=== PATIENT | male | born 1975 | race African-American/Black ===

== ENCOUNTER 2017-01-11 14:07 | Emergency (ER) | payer MEDICAID ==
[~2017-01-11] VITALS: Ht 190.5 cm; Wt 122.5 kg
[2017-01-11 14:33] VITALS: BP 137/103
--- NOTE | 2017-01-11 19:21 | NUR ---
PATIENT LEFT WITHOUT BEING SEEN BY DR. CISNEROS. NO FURTHER CARE PROVIDED FOR PATIENT.
== END 2017-01-11 19:21 | disposition left against medical advice (07) ==
LOC: MED 14:07
DX: R42 Dizziness and giddiness (principal); Z53.21 Procedure and treatment not carried out due to patient leaving prior to being seen by health care provider

== ENCOUNTER 2023-06-11 18:23 | Emergency (ER) | payer BC, MEDICAID ==
[~2023-06-11] VITALS: Ht 188 cm; Wt 116.1 kg
[2023-06-11 18:57] VITALS: BP 142/100; PULSE 114; RESP 20; TEMP 98; O2SAT 99
[2023-06-11 19:52] LABS: BASOPHILS # (AUTO) 0.1 K/uL (0.00-0.22); BASOPHILS % (AUTO) 0.8 % (0.0-2.0); EOSINOPHILS # (AUTO) 0.1 K/uL (0-0.4); EOSINOPHILS % (AUTO) 0.6 % (0.0-4.0); HEMATOCRIT 47.5 % (36-52); LYMPHOCYTES # (AUTO) 3.5 K/uL (2.0-11.5); LYMPHOCYTES % (AUTO) 38.9 % (20.5-51.1); MEAN CORPUSCULAR HEMOGLOBIN 28 pg (27-31); MEAN CORPUSCULAR HGB CONC 34 g/dL (33-37); MEAN CORPUSCULAR VOLUME 84.6 fL (80-94); MONOCYTES # (AUTO) 0.7 K/uL (0.8-1.0); MONOCYTES % (AUTO) 7.8 % (1.7-9.3); NEUTROPHILS # (AUTO) 4.7 K/uL (1.8-7.7); NEUTROPHILS % (AUTO) 51.9 % (42.2-75.2); PLATELET COUNT (AUTO) 371 K/uL (140-450); RED BLOOD CELL COUNT(AUTO) 5.62 MIL/uL (4.20-6.10)
[2023-06-11 20:17] LABS: ANION GAP 13.4 (8-16); CALCIUM 8.8 mg/dL (8.5-10.1); CARBON DIOXIDE 27.6 mmol/L (21-32); CREATININE 1.2 mg/dL (0.6-1.3)
[2023-06-11 23:40] VITALS: BP 136/79; PULSE 72; RESP 20; O2SAT 99
== END 2023-06-11 23:40 | disposition home or self-care (01) ==
LOC: MED 18:23
DX: R07.9 Chest pain, unspecified (principal); F41.9 Anxiety disorder, unspecified; I10 Essential (primary) hypertension; E78.5 Hyperlipidemia, unspecified
CPT/HCPCS: 36415; 71045; 80048; 84484; 85025; 93005; 99285; Q0092

== ENCOUNTER 2023-06-27 16:01 | Emergency (ER) | payer BC, MEDICAID ==
[~2023-06-27] VITALS: Ht 188 cm; Wt 112.9 kg
[2023-06-27 16:11] VITALS: BP 104/89; PULSE 115; RESP 20; TEMP 97; O2SAT 98
[2023-06-27] MEDS ORDERED: [UNRECOGNIZED DRUG - CODE] PO (16:33)
[2023-06-27] MEDS ORDERED: AMOX1TER12 PO (16:33)
== END 2023-06-27 16:45 | disposition home or self-care (01) ==
LOC: MED 16:01
DX: L02.219 Cutaneous abscess of trunk, unspecified (principal); I10 Essential (primary) hypertension; Z79.899 Other long term (current) drug therapy
CPT/HCPCS: 99283

== ENCOUNTER 2023-07-30 19:51 | Emergency (ER) | payer BC, MEDICAID ==
[~2023-07-30] VITALS: Ht 188 cm; Wt 108.4 kg
[~2023-07-30 19:51] MED LIST: AMOX1TER12 PO; [UNRECOGNIZED DRUG - CODE] PO
[2023-07-30 20:56] VITALS: BP 130/90; PULSE 100; RESP 18; TEMP 97.7; O2SAT 99
[2023-07-30] MEDS ORDERED: KETOROLAC 60 MG/2 ML VIAL IM ONE (22:35)
[2023-07-30 23:28] VITALS: O2SAT 99
[2023-07-30] MEDS ORDERED: NAPR-54 PO (23:43)
== END 2023-07-30 23:50 | disposition home or self-care (01) ==
LOC: MED 19:51
DX: S33.9XXA Sprain of unspecified parts of lumbar spine and pelvis, initial encounter (principal); I10 Essential (primary) hypertension; Z79.899 Other long term (current) drug therapy; Z79.1 Long term (current) use of non-steroidal anti-inflammatories (NSAID); Z79.2 Long term (current) use of antibiotics; V89.2XXA Person injured in unspecified motor-vehicle accident, traffic, initial encounter; Y93.89 Activity, other specified; Y92.410 Unspecified street and highway as the place of occurrence of the external cause; Y99.8 Other external cause status
CPT/HCPCS: 72050; 72100; 96372; 99284; J1885

== ENCOUNTER 2023-10-12 16:02 | Emergency (ER) | payer BC, MEDICAID ==
[~2023-10-12] VITALS: Ht 188 cm; Wt 105.7 kg
[~2023-10-12 16:02] MED LIST changes: +NAPR-54 PO
[2023-10-12 16:06] VITALS: BP 148/89; PULSE 144; RESP 18; TEMP 98; O2SAT 100
[2023-10-12] MEDS ORDERED: NACL 0.9% 1,000 ML IV ONE (16:35)
[2023-10-12] MEDS ORDERED: ASPIRIN 81 MG TAB.CHEW PO ONE (16:35)
[2023-10-12] MEDS ORDERED: LORazepam 2 MG/ML VIAL IVP ONE (16:35)
[2023-10-12 17:14] LABS: BASOPHILS % (AUTO) 0.4 % (0.0-2.0); EOSINOPHILS % (AUTO) 0.2 % (0.0-4.0); HEMATOCRIT 46.6 % (36-52); HEMOGLOBIN 16.3 g/dL (12.0-18.0); LYMPHOCYTES # (AUTO) 1.6 K/uL (2.0-11.5); LYMPHOCYTES % (AUTO) 21.6 % (20.5-51.1); MEAN CORPUSCULAR HEMOGLOBIN 30 pg (27-31); MEAN CORPUSCULAR HGB CONC 35 g/dL (33-37); MEAN CORPUSCULAR VOLUME 84.4 fL (80-94); MONOCYTES # (AUTO) 0.5 K/uL (0.8-1.0); MONOCYTES % (AUTO) 7.5 % (1.7-9.3); NEUTROPHILS # (AUTO) 5.1 K/uL (1.8-7.7); NEUTROPHILS % (AUTO) 70.3 % (42.2-75.2); PLATELET COUNT (AUTO) 394 K/uL (140-450); RED BLOOD CELL COUNT(AUTO) 5.52 MIL/uL (4.20-6.10); WHITE BLOOD COUNT (AUTO) 7.3 K/uL (4.8-10.8)
[2023-10-12 17:27] LABS: PARTIAL THROMBOPLASTIN TIME 24.8 secs (22-35.6); PROTHROMBIN TIME 10.5 secs (10.8-13.4)
[2023-10-12 17:56] LABS: ALANINE AMINOTRANSFERASE 20 U/L (12-78); ALBUMIN 3.9 g/dL (3.4-5.0); ALKALINE PHOSPHATASE 89 U/L (50-136); ANION GAP 16.1 (8-16); ASPARTATE AMINOTRANSFERASE 17 U/L (15-37); CALCIUM 9.4 mg/dL (8.5-10.1); CARBON DIOXIDE 25.9 mmol/L (21-32); CHLORIDE 98 mmol/L (98-107); CREATININE 1.2 mg/dL (0.6-1.3); GFR ARICAN-AMERICAN 83 mL/min (>90); GFR NON ARICAN-AMERICAN 69 mL/min (>90); GLUCOSE 115 mg/dL (74-106); SODIUM SERUM 137 mmol/L (136-145); THYROID STIMULATING HORMONE 1.59 uIU/mL (0.34-3.74); TOTAL BILIRUBIN 0.8 mg/dL (0.0-1.0); TOTAL PROTEIN, SERUM 9.5 g/dL (6.4-8.2); UREA NITROGEN, BLOOD 15 mg/dL (7-18)
[2023-10-12] MEDS ORDERED: POTASSIUM CHLORIDE 10 MEQ TABER PO ONE (18:05)
[2023-10-12] MEDS ORDERED: ACETAMINOPHEN EXTRA STRENGTH 500 MG TAB PO ONE (18:35)
[2023-10-12] MEDS ORDERED: AZIT250T4 PO (18:50)
[2023-10-12] MEDS ORDERED: HYDR25CA1 PO (18:50)
[2023-10-12] MEDS ORDERED: ACET-9882 PO (18:50)
[2023-10-12 19:31] LABS: APPEARANCE,URINE CLEAR (CLEAR); BILIRUBIN,URINE NEGATIVE (NEGATIVE); BLOOD, URINE NEGATIVE (NEGATIVE); COLOR,URINE YELLOW (YELLOW); LEUKOCYTE ESTERASE ,URINE NEGATIVE (NEGATIVE); NITRITE, URINE NEGATIVE (NEGATIVE); PROTEIN,URINE NEGATIVE (NEGATIVE); UGLUCOSE NEGATIVE (NEGATIVE); UROBILINOGEN,URINE 0.2 EU/dL (0.2 - 1)
[2023-10-12 19:39] LABS: AMPHETAMINE, URINE NEGATIVE ng/ml (NEG <=1000); BARBITURATE, URINE NEGATIVE ng/ml (NEG <=200); BENZODIAZEPINE, URINE NEGATIVE ng/mL (NEG <=200); CANNABINOID, URINE POSITIVE ng/mL (NEG <=50); COCAINE, URINE NEGATIVE ng/mL (NEG <=300); OPIATE, URINE NEGATIVE ng/mL (NEG <=2000); PHENCYCLIDINE SCREEN,URINE NEGATIVE ng/mL (NEG <=25)
[2023-10-12 20:26] VITALS: BP 132/76; PULSE 102; RESP 18; TEMP 98; O2SAT 100
== END 2023-10-12 20:26 | disposition home or self-care (01) ==
LOC: MED 16:02
DX: R07.89 Other chest pain (principal); J40 Bronchitis, not specified as acute or chronic; F43.9 Reaction to severe stress, unspecified; F41.9 Anxiety disorder, unspecified; R00.0 Tachycardia, unspecified; Z63.4 Disappearance and death of family member; I10 Essential (primary) hypertension; F12.90 Cannabis use, unspecified, uncomplicated; Z79.899 Other long term (current) drug therapy; Z79.2 Long term (current) use of antibiotics; Z79.1 Long term (current) use of non-steroidal anti-inflammatories (NSAID)
CPT/HCPCS: 36415; 71045; 80053; 80305; 81003; 84443; 84484; 85025; 85379; 85610; 85730; 93005; 96361; 96374; 99285; J2060; J7030; Q0092

== ENCOUNTER 2024-05-22 00:55 | Emergency (ER) | payer BC, MEDICAID ==
[~2024-05-22] VITALS: Ht 188 cm; Wt 106.6 kg
[~2024-05-22 00:55] MED LIST changes: +ACET-9882 PO; +AZIT250T4 PO; +HYDR25CA1 PO; +NAPR-337 PO; -NAPR-54 PO
[2024-05-22 01:02] VITALS: BP 149/93; PULSE 77; RESP 14; TEMP 97.3; O2SAT 99
== END 2024-05-22 01:17 | disposition home or self-care (01) ==
LOC: MED 00:55
DX: F41.9 Anxiety disorder, unspecified (principal); Z79.899 Other long term (current) drug therapy
CPT/HCPCS: 99282